=== PATIENT | female | born 1995 | race Caucasian/White ===

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

== ENCOUNTER 2021-05-18 18:57 | Emergency (ER) | payer MEDICAID ==
[~2021-05-18 18:57] MED LIST: ROBITUSSIN AC480 ML PO
[2021-05-18 20:00] LABS: HEMOGLOBIN 14.8 gm/dl (12.3-15.3); RED BLOOD COUNT 4.83 M/UL (4.00-5.10); WHITE BLOOD COUNT 14.3 K/UL (4.5-11.0)
[2021-05-18 20:16] LABS: BUN/CREATININE RATIO 10 (0-10)
[2021-05-18] MEDS ORDERED: BENTYL 20MG TAB20 MG PO (21:21)
[2021-05-18] MEDS ORDERED: IBUPROFEN600 MG PO (21:21)
[2021-05-18] MEDS ORDERED: ZOFRAN4 MG PO (21:21)
== END 2021-05-19 00:01 | disposition home or self-care (01) ==
LOC: ER1 18:57
PROVIDERS: Physician Assistant
DX: R10.9 Unspecified abdominal pain (principal); R11.2 Nausea with vomiting, unspecified; R51.9 Headache, unspecified; R10.817 Generalized abdominal tenderness; I10 Essential (primary) hypertension; F17.210 Nicotine dependence, cigarettes, uncomplicated
CPT/HCPCS: 70450; 80053; 81001; 83690; 84703; 85025; 96374; 96375; 99284; J1200; J2765

== ENCOUNTER 2021-07-03 23:04 | Emergency (ER) | payer OTHER ==
[~2021-07-03 23:04] MED LIST changes: +BENTYL 20MG TAB20 MG PO; +IBUPROFEN600 MG PO; +ZOFRAN4 MG PO
[2021-07-04 00:16] LABS: HEMOGLOBIN 14.8 gm/dl (12.3-15.3); RED BLOOD COUNT 4.85 M/UL (4.00-5.10); WHITE BLOOD COUNT 9.7 K/UL (4.5-11.0)
[2021-07-04 00:35] LABS: BUN/CREATININE RATIO 8 (0-10)
[2021-07-04] MEDS ORDERED: PHENERGAN 25 MG25 M1 PO (00:49)
[2021-07-04] MEDS ORDERED: PRENATAL MULTI1 EAC6 PO (00:52)
== END 2021-07-04 01:04 | disposition home or self-care (01) ==
LOC: ER1 23:04
PROVIDERS: Family Medicine
DX: O21.9 Vomiting of pregnancy, unspecified (principal); O99.331 Smoking (tobacco) complicating pregnancy, first trimester; F17.210 Nicotine dependence, cigarettes, uncomplicated; Z3A.00 Weeks of gestation of pregnancy not specified
CPT/HCPCS: 80053; 81001; 83690; 84702; 85025; 96365; 99284; J2550; J7030

== ENCOUNTER 2021-07-25 20:09 | Emergency (ER) | payer SELFPAY ==
[~2021-07-25 20:09] MED LIST changes: +PHENERGAN 25 MG25 M1 PO; +PRENATAL MULTI1 EAC6 PO
== END 2021-07-25 22:42 | disposition left against medical advice (07) ==
LOC: ER1 20:09
DX: Z53.21 Procedure and treatment not carried out due to patient leaving prior to being seen by health care provider (principal)
CPT/HCPCS: 81001; 84703

== ENCOUNTER 2021-09-30 20:43 | Emergency (ER) | payer OTHER | END 2021-09-30 22:34 | disposition home or self-care (01) | LOC: ER1 20:43 | DX: O9A.212 Injury, poisoning and certain other consequences of external causes complicating pregnancy, second trimester (principal); S80.211A Abrasion, right knee, initial encounter; S20.111A Abrasion of breast, right breast, initial encounter; S30.811A Abrasion of abdominal wall, initial encounter; O99.332 Smoking (tobacco) complicating pregnancy, second trimester; F17.200 Nicotine dependence, unspecified, uncomplicated; Z3A.00 Weeks of gestation of pregnancy not specified; W01.10XA Fall on same level from slipping, tripping and stumbling with subsequent striking against unspecified object, initial encounter | CPT/HCPCS: 99283 ==

== ENCOUNTER 2021-12-29 20:40 | Emergency (ER) | payer OTHER | END 2021-12-29 21:03 | disposition left against medical advice (07) | LOC: ER1 20:40 | DX: O99.891 Other specified diseases and conditions complicating pregnancy (principal); M79.89 Other specified soft tissue disorders; Z3A.26 26 weeks gestation of pregnancy | CPT/HCPCS: 81001; 99281 ==

== ENCOUNTER 2022-01-30 02:18 | Outpatient (CLI) | payer OTHER | END 2022-01-30 04:29 | disposition home or self-care (01) | LOC: GENOP 02:18 | DX: O99.891 Other specified diseases and conditions complicating pregnancy (principal); R10.9 Unspecified abdominal pain; M54.9 Dorsalgia, unspecified; Z3A.35 35 weeks gestation of pregnancy | CPT/HCPCS: 81001; 87086; 96360 ==

== ENCOUNTER 2022-02-17 18:53 | Outpatient (CLI) | payer OTHER | END 2022-02-17 20:10 | disposition home or self-care (01) | LOC: GENOP 18:53 | DX: O36.8130 Decreased fetal movements, third trimester, not applicable or unspecified (principal); O99.891 Other specified diseases and conditions complicating pregnancy; N89.8 Other specified noninflammatory disorders of vagina; M79.89 Other specified soft tissue disorders; R23.8 Other skin changes; M79.662 Pain in left lower leg; M79.661 Pain in right lower leg; Z3A.37 37 weeks gestation of pregnancy | CPT/HCPCS: 84112; G0463 ==

== ENCOUNTER 2022-02-24 14:55 | Inpatient (IN) | payer OTHER ==
[~2022-02-24] VITALS: Ht 157.5 cm; Wt 69.9 kg
[2022-02-24 15:43] LABS: HEMOGLOBIN 11.6 gm/dl (12.3-15.3); RED BLOOD COUNT 3.71 M/UL (4.00-5.10); WHITE BLOOD COUNT 11.9 K/UL (4.5-11.0)
[2022-02-25] MEDS ORDERED: COLACE 100MG C100 MG PO (16:48)
[2022-02-25] MEDS ORDERED: IBUPROFEN600 MG PO (16:48)
[2022-02-26 07:26] LABS: HEMOGLOBIN 10.4 gm/dl (12.3-15.3)
== END 2022-02-26 19:41 | disposition home or self-care (01) | DRG 807 ==
LOC: GENOP 14:55 → OB 15:06
PROVIDERS: Obstetrics & Gynecology; ADMIT Obstetrics & Gynecology
PROC: 10E0XZZ Delivery of Products of Conception, External Approach (ICD-10-PCS; principal; 2022-02-25)
PROC: 10907ZC Drainage of Amniotic Fluid, Therapeutic from Products of Conception, Via Natural or Artificial Opening (ICD-10-PCS; 2022-02-25)
PROC: 3E033VJ Introduction of Other Hormone into Peripheral Vein, Percutaneous Approach (ICD-10-PCS; 2022-02-25)
PROC: 0UH97HZ Insertion of Contraceptive Device into Uterus, Via Natural or Artificial Opening (ICD-10-PCS; 2022-02-25)
PROC: 4A1H7CZ Monitoring of Products of Conception, Cardiac Rate, Via Natural or Artificial Opening (ICD-10-PCS; 2022-02-25)
PROC: 10H073Z Insertion of Monitoring Electrode into Products of Conception, Via Natural or Artificial Opening (ICD-10-PCS; 2022-02-25)
DX: O13.4 Gestational [pregnancy-induced] hypertension without significant proteinuria, complicating childbirth (principal); Z37.0 Single live birth; O99.334 Smoking (tobacco) complicating childbirth; F17.200 Nicotine dependence, unspecified, uncomplicated; Z28.310 Unvaccinated for COVID-19; Z90.89 Acquired absence of other organs; Z3A.38 38 weeks gestation of pregnancy
CPT/HCPCS: 59025; 81001; 82800; 84112; 85014; 85018; 85025; J2405; J2590